=== PATIENT | female | born 1960 | race Caucasian/White ===

== ENCOUNTER → 2019-11-29 08:36 | Outpatient (REF) | payer OTHER, SELFPAY ==
--- NOTE | 2019-11-29 08:30 | CA_ITS ---
Transthoracic Echocardiogram Patient (Last, First, Middle): Christina Stewart, Gender: Female Date of : 1960 Age: 59 Procedure Date: 11/29/2019 Procedure Type: Transthoracic Echocardiogram Location: OP Height: 167.64 cm Weight: 47.63 kg BSA: 1.52 m2 Heart Rate: bpm BP: 142 / 83 mmHg Home Economist: VH Referring MD: Eva Grijalva [employer]OT[employer] RECEPTIONIST-C Symptoms: [facility] [place] Study Quality: Good ECG Rhythm: Sinus Conclusions: - The left ventricular systolic function is moderately decreased. The visually estimated ejection fraction is between 30-35%. Findings Left Ventricle Normal left ventricular cavity size. The left ventricular systolic function is moderately decreased. The visually estimated ejection fraction is between 30-35%. There is moderate global hypokinesis. Right Ventricle Normal right ventricular cavity size. There is moderately decreased right ventricular systolic function. Mitral Valve Known mitral valve repair with trace regurgitation. Venous The inferior vena cava is normal in size and collapses greater than 50% with inspiration. Prior Study Comparison No significant change compared to prior study dated: 08/02/2019. Measurements 2D Systolic Function EF 4C: 30.40 >55% EF 2C: 34.50 >55% EF BiP: 30.30 >55% Updated in Other Vendor System with Status of Final Carter Duran MD electronically signed on 12/02/2019 9:20:43 AM with status of Final
== END ==
LOC: HO.CARD 08:36
PROVIDERS: PCP Internal Medicine; Visit Provider Nurse Practitioner Family
DX: I10 Essential (primary) hypertension (principal)
CPT/HCPCS: 93308

== ENCOUNTER → 2020-02-11 09:27 | Outpatient (BNVA) | payer OTHER, SELFPAY | PROVIDERS: PCP Internal Medicine; Visit Provider Internal Medicine | DX: I62.9 Nontraumatic intracranial hemorrhage, unspecified (principal); I51.3 Intracardiac thrombosis, not elsewhere classified; I51.81 Takotsubo syndrome; I95.1 Orthostatic hypotension; Z98.890 Other specified postprocedural states | CPT/HCPCS: 99212 ==

== ENCOUNTER → 2020-06-05 08:24 | Outpatient (REF) | payer OTHER, SELFPAY ==
--- NOTE | 2020-06-05 08:27 | CA_ITS ---
Transthoracic Echocardiogram Patient (Last, First, Middle): Christina Stewart, Gender: Female Date of : 1960 Age: 60 Procedure Date: 06/05/2020 Procedure Type: Transthoracic Echocardiogram Location: OP Height: 170.18 cm Weight: 47.63 kg BSA: 1.54 m2 Heart Rate: bpm BP: 104 / 58 mmHg Bull Riveter: Referring MD: Carter Duran MD Symptoms: I51.81 - Takotsubo syndrome Conclusions: - Normal left ventricular cavity size. - The visually estimated ejection fraction is between 15-20%. - The apical anterior and mid anterior segments are hypokinetic. - The anterolateral wall, the apex, apical inferior, apical lateral, apical septum, mid inferoseptal, mid anteroseptal, and mid inferolateral segments are akinetic. - There is mildly decreased right ventricular systolic function. - There is severe mitral annular calcification. Findings Procedure Information The patient receives contrast. Left Ventricle Normal left ventricular cavity size. There is normal left ventricular wall thickness. The left ventricular systolic function is severely decreased. The visually estimated ejection fraction is between 15-20%. There is evidence of regional wall motion abnormalities. Diastolic function is indeterminate on the basis of available data. Wall Motion Rest Echo Findings The apical anterior and mid anterior segments are hypokinetic. The anterolateral wall, the apex, apical inferior, apical lateral, apical septum, mid inferoseptal, mid anteroseptal, and mid inferolateral segments are akinetic. Right Ventricle Normal right ventricular cavity size. There is mildly decreased right ventricular systolic function. Atria The left atrium is likely dilated. The right atrium is normal in size. Aortic Valve Normal aortic valve structure and function. There is no aortic valve stenosis. There is trace (trivial) aortic valve regurgitation. Mitral Valve There is severe mitral annular calcification. There is trace mitral valve regurgitation. There is no mitral valve stenosis. Pulmonic Valve Normal pulmonic valve structure and function. Tricuspid Valve Normal tricuspid valve structure and function. There is trace tricuspid valve regurgitation. Great Vessels All visible segments of the aorta are normal in size. The visualized portions of the pulmonary artery and branches are normal. Venous The inferior vena cava is collapsed, consistent with reduced intravascular volume. Pericardium/Pleural There is no evidence of pericardial effusion. Prior Study Comparison Changes noted compared to prior study dated: 11/29/2019. EF 15-20% now Measurements 2D Linear Measurements RVIDd: 3.65 RVIDd Index: 2.37 IVSd: 0.51 0.6-0.9/0.6-1.0 cm LVIDd: 5.42 3.9-5.3/4.2-5.9 cm LVIDd Index: 3.52 2.4-3.2/2.2-3.1 cm/m2 LVIDs: 5.06 2.0-3.6 cm LVPWd: 1.03 0.7-1.1 cm Ao Root: 2.90 2.1-3.5 cm LA Diam: 3.20 2.7-3.8/3.0-4.0 cm LAIDs Index: 2.08 1.5-2.3 cm/m2 LV Mass: 184.30 67-162/88-224 g LV Mass Index: 119.67 43-95/49-115 g/m2 LVOT Diam: 2.20 3.0+(-)1.3 cm 2D Systolic Function EF 4C: 16.80 >55% EF 2C: 35.80 >55% Mitral Valve E'Lateral: 4.35 E'Medial: 4.57 Aortic Valve AoV Pk Dago: 0.92 AoV Mn Dago: 0.73 AoV VTI: 0.13 AoV Pk Grad: 3.00 Aov Mn Grad: 2.00 BLAINE Cont.VTI: 2.53 LVOT LVOT Pk Dago: 0.67 LVOT Mn Dago: 0.44 LVOT VTI: 0.09 LVOT Pk Grad: 2.00 LVOT Mn Grad: 1.00 LVOT Diam: 2.20 LVOT Area: 3.80 Diastolic Function E'Medial: 4.57 E' Laterial: 4.35 Tricuspid Valve TR Pk Dago: 2.27 TR Pk Grad: 21.00 RA Press: 3.00 RVSP: 24.00 Great Vessels Aorta Ao Root-2D: 2.90 2.0-3.7 cm Ao Asc: 3.00 2.1-3.4 cm Ao Arch: 2.70 Updated in Other Vendor System with Status of Final Rex Jackson MD electronically signed on 06/07/2020 8:55:18 PM with status of Final
== END ==
LOC: HO.CARD 08:24
PROVIDERS: Visit Provider Internal Medicine
DX: I51.81 Takotsubo syndrome (principal)
CPT/HCPCS: 93306; Q9957

== ENCOUNTER → 2020-06-16 08:31 | Outpatient (BNVA) | payer OTHER, SELFPAY | PROVIDERS: PCP Internal Medicine; Visit Provider Internal Medicine | DX: I95.1 Orthostatic hypotension (principal); I51.81 Takotsubo syndrome; I51.3 Intracardiac thrombosis, not elsewhere classified; I62.9 Nontraumatic intracranial hemorrhage, unspecified; Z98.890 Other specified postprocedural states | CPT/HCPCS: 99212 ==

== ENCOUNTER → 2020-11-19 08:25 | Outpatient (REF) | payer OTHER, SELFPAY ==
--- NOTE | 2020-11-19 08:28 | CA_ITS ---
Transthoracic Echocardiogram Patient (Last, First, Middle): Christina Stewart, Gender: Female Date of : 1960 Age: 60 Procedure Date: 11/19/2020 Procedure Type: Transthoracic Echocardiogram Location: OP Height: 170.18 cm Weight: 49.9 kg BSA: 1.57 m2 Heart Rate: bpm BP: 110 / 62 mmHg [employer] Worker: BAKARI Referring MD: Carter Duran MD Symptoms: I51.81 - Takotsubo syndrome Study Quality: Fair ECG Rhythm: Sinus Conclusions: - The left ventricular systolic function is severely decreased. The visually estimated ejection fraction is between 25-30%. - There is severely decreased right ventricular systolic function. Findings Left Ventricle Normal left ventricular cavity size. There is mildly increased left ventricular wall thickness. The left ventricular systolic function is severely decreased. The visually estimated ejection fraction is between 25 30%. The calculated ejection fraction is 26% by biplane method. LV GLS 3.8%; severely reduced. Wall Motion Rest Echo Findings The entire apex, anterior wall, anteroseptal wall, entire lateral wall, and mid inferior segment are hypokinetic. The inferoseptal wall and basal inferior segment are akinetic. Right Ventricle Normal right ventricular cavity size. There is severely decreased right ventricular systolic function. TAPSE 0.9cm. Prior Study Comparison No significant change compared to prior study dated: 06/05/2020. Measurements 2D Linear Measurements IVSd: 1.19 0.6-0.9/0.6-1.0 cm LVIDd: 4.69 3.9-5.3/4.2-5.9 cm LVIDd Index: 2.99 2.4-3.2/2.2-3.1 cm/m2 LVIDs: 3.56 2.0-3.6 cm LVPWd: 1.09 0.7-1.1 cm LV Mass: 244.87 67-162/88-224 g LV Mass Index: 155.97 43-95/49-115 g/m2 2D Systolic Function EF 4C: 21.80 >55% EF 2C: 33.30 >55% EF BiP: 26.40 >55% Mitral Valve MV Pk E: 0.61 MV PK A: 1.07 MV Decel Time: 120.00 E/A: 0.60 E'Lateral: 5.44 E'Medial: 4.35 E/E' Med: 13.90 E/E' Lat: 11.10 PHT: 35.00 MVA PHT: 6.29 Decel Rogers: 5.05 Diastolic Function MV Pk E: 0.61 MV Pk A: 1.07 E/A: 0.60 E'Medial: 4.35 E/E' Med: 13.90 E' Laterial: 5.44 E/E' Lat: 11.10 Updated in Other Vendor System with Status of Final Carter Duran MD electronically signed on 11/20/2020 11:46:52 AM with status of Final
== END ==
LOC: HO.CARD 08:25
PROVIDERS: PCP Nurse Practitioner Family; Visit Provider Internal Medicine
DX: I51.81 Takotsubo syndrome (principal)
CPT/HCPCS: 93308; 93356

== ENCOUNTER → 2020-12-14 09:32 | Outpatient (BNVA) | payer OTHER, SELFPAY | PROVIDERS: PCP Nurse Practitioner Family; Visit Provider Internal Medicine | DX: I42.8 Other cardiomyopathies (principal); I95.1 Orthostatic hypotension; I51.3 Intracardiac thrombosis, not elsewhere classified; I62.9 Nontraumatic intracranial hemorrhage, unspecified; Z86.73 Personal history of transient ischemic attack (TIA), and cerebral infarction without residual deficits; Z98.890 Other specified postprocedural states; Z88.8 Allergy status to other drugs, medicaments and biological substances; Z79.52 Long term (current) use of systemic steroids; Z79.899 Other long term (current) drug therapy | CPT/HCPCS: 93005; 99212 ==